=== PATIENT | male | born 1945 | race Caucasian/White ===

== ENCOUNTER → 2016-10-26 | Outpatient (CLI) | payer MEDICARE, BC ==
[~2016-10-26] MED LIST: ASPIRIN PO; BACITRACIN30 GM TOP; BACTRIM DS TABL1 TA1 PO; LIPITOR PO; MULTIVITAMIN1 UDCAP; VOLTAREN75 MG PO
--- NOTE | ~2016-10-26 | CT55 ---
[facility] A Service of [facility] & [facility] RADIOLOGY TEXT RESULTS PATIENT: CARRIE LOPEZ LOCATION: [facility] : 45 UNIT #: [id number] AGE: [address]: AMERICA PADILLA SEX: M ORDER DR: [id number] [facility] [address] [place], [place] [address] [id number] O MR#: [id number] Acc #: [id number] NAME: CARRIE LOPEZ. : 1945 SEX: M STUDY DATE/TIME: 10/26/2016 10:41 UNIT: [facility] ROOM: STUDY DESCRIPTION: CT Chest W Con Attending Physician: Humberto Faith Referring Physician: Humberto Faith Ordering Physician: Humberto Faith Primary Care Physician: Viri Mendoza M.D. MEDICAL IMAGING REPORT This report is preliminary unless electronic signature is present EXAM CT scan of the chest with contrast INDICATION Follow up pulmonary nodules. COMPARISON 04/03/2016, 09/20/2015. TECHNIQUE Axial 2 mm images were obtained through the chest without contrast. Sagittal and coronal reconstructions were generated. The study was done with IV contrast. 100 mL of Isovue [address] examination was performed with one or more of the following radiation dose reduction techniques: automatic exposure control, adjustment of mA and/or kV according to patient size, and iterative reconstruction. FINDINGS There is a 3 mm nodule in the right upper lobe on image 74, 3-4 mm nodule on image 85 in the right upper lobe, a 3-4 mm nodule in the right middle lobe on image 102 which is pleural based and there are 2-3 nodules in the right base which are 4-5 mm in diameter on image 118. In the left lower lobe, there are 2 nodules that are 5 mm or less on image 110 and image 100. There has been no change from the previous study from 04/03/2016. The thyroid gland is normal. The aorta is normal in size. There is no mediastinal or hilar adenopathy. Visualized portions of the upper abdomen are normal. IMPRESSION Multiple small pulmonary nodules measuring 6 mm or less are unchanged from the prior 2 studies dating back to August 2015. A 6-month follow up unenhanced CT scan is recommended. [facility] A Service of [facility] RADIOLOGY TEXT RESULTS PATIENT: CARRIE LOPEZ LOCATION: [facility] : 45 UNIT #: [id number] AGE: [address]: AMERICA PADILLA SEX: M ORDER DR: Dictated by... Ameya Bolton M.D. THIS IS AN ELECTRONICALLY VERIFIED REPORT Ameya Bolton M.D. at 10/27/2016 10:51 AM MERLENE/meagan TD: 10/27/2016 09:41 JOB #: [id number] MEDICAL IMAGING REPORT Page 1 of 1 COPY
[2016-10-26 11:56] LABS: POC - CREATININE 0.79 mg/dL (0.64-1.27); POC - GFR >60.0 mL/min (>60)
== END | disposition home or self-care (01) ==
LOC: CCAT 09:32
PROVIDERS: Nurse Practitioner Family
DX: R91.8 Other nonspecific abnormal finding of lung field (principal)
CPT/HCPCS: 71260; 82565; Q9967